=== PATIENT | female | born 1960 | race Caucasian/White ===

== ENCOUNTER → 2016-12-24 | Outpatient (CLI) | payer OTHER ==
[~2016-12-24] MED LIST: ASPI1TAB7 PO; CALC-191 PO; CETI10CA19 PO; ELET40TA PO; ESTR2TAB PO; FISH1CAP2 PO; IBUP-1547 PO; IBUP-1724 PO; MAGN250T PO; MULT1TAB69 PO; OXYC-541 PO; POTA99TA24 PO; PROP160C2 PO; SUMA100T18 PO
== END ==
LOC: WC.BC 10:16
DX: Z12.31 Encounter for screening mammogram for malignant neoplasm of breast (principal)
CPT/HCPCS: 77063; G0202